=== PATIENT | male | born 2005 | race Two or more races ===

== ENCOUNTER 2024-07-05 23:39 | Emergency (ER) | payer SELFPAY ==
[2024-07-06] MEDS: Erythromycin Base 0.5% Ophth Oint 1 GM Tube EYEBOTH ONE (00:22)
[2024-07-06] MEDS: Acetaminophen/HYDROcodone 325-5 MG Tab PO ONE (00:22)
== END 2024-07-06 00:25 | disposition home or self-care (01) ==
LOC: MW.ED 23:39
DX: H16.133 Photokeratitis, bilateral (principal); Z79.899 Other long term (current) drug therapy
CPT/HCPCS: 99283; A9270